=== PATIENT | female | born 1960 | race Two or more races ===

== ENCOUNTER 2018-09-18 11:11 | Emergency (ER) | payer BC, OTHER ==
[~2018-09-18] VITALS: Ht 165.1 cm; Wt 90.7 kg
[2018-09-18 11:23] VITALS: BP 138/79
[2018-09-18] MEDS ORDERED: SUMAtriptan SUCCINATE 6 MG/0.5 ML VL SC ONE (12:45)
== END 2018-09-18 13:18 | disposition home or self-care (01) ==
LOC: ER 11:15
DX: G44.029 Chronic cluster headache, not intractable (principal); Z76.0 Encounter for issue of repeat prescription
CPT/HCPCS: 96372; 99283; J3030